=== PATIENT | female | born 1940 | race Caucasian/White ===

== ENCOUNTER 2018-03-25 14:18 | Inpatient (IN) ==
[2018-03-25] MEDS ORDERED: ONDANSETRON 4 MG/2 ML VIAL IV PRN (16:42)
[2018-03-25] MEDS ORDERED: SODIUM CHLORIDE 0.9% 1,000 ML IV PRN (16:51)
[2018-03-25 17:34] LABS: Basophils % 0.3 % (0.0-0.8); Eosinophils # 0.2 10*3/uL (0.0-0.87); Eosinophils % 2.6 % (0.00-10.9); Hematocrit 21.7 VOL% (35.7-47.0); Immature Granulocytes % 0.4 %; Immature Granulocytes Absolute 0.03 #; Lymphocytes # 2.6 10*3/uL (1.4-4.0); Mean Corpuscular HGB Conc 27.6 GM/DL (32-36); Mean Corpuscular Hemoglobin 19 PG (27-34); Mean Corpuscular Volume 69.6 FL (87-102); Mean Platelet Volume 9.4 FL (9.6-12.0); Monocytes # 0.7 10*3/uL (0.11-0.8); Monocytes % 10.4 % (1.7-12.7); Neutrophils # 3.4 10*3/uL (1.4-7.4); Neutrophils % 49.3 % (38.7-73.9); Platelet Count 273 T/CUMM (130-400); Red Blood Count 3.12 MC/CUMM (3.8-5.5); Red Cell Distribution Width 19.6 % (9.3-17.3); White Blood Count 6.9 T/CUMM (4-12)
[2018-03-25 17:58] LABS: Alanine Aminotransferase 14 U/L (13-56); Albumin 3.1 G/DL (3.4-5.0); Alkaline Phosphatase 50 U/L (45-117); Aspartate Amino Transferase 13 U/L (0-37); Bilirubin,Direct < 0.100 MG/DL (0.0-0.20); Bilirubin,Indirect 0.3 MG/DL (0.0-1.0); Bilirubin,Total < 0.39 MG/DL (0.2-1.0); Blood Urea Nitrogen 18 MG/DL (7-18); Glucose 78 MG/DL (74-106); Osmolality,Calculated 279.4 MOS/KG (273-304); Potassium 3.9 MMOL/L (3.5-5.1); Sodium 140 MMOL/L (136-145); Total Protein 6.7 G/DL (6.4-8.3)
[2018-03-25 19:38] LABS: Basophils % 0.3 % (0.0-0.8); Eosinophils # 0.2 10*3/uL (0.0-0.87); Eosinophils % 2.8 % (0.00-10.9); Immature Granulocytes % 0.3 %; Immature Granulocytes Absolute 0.02 #; Lymphocytes # 2.6 10*3/uL (1.4-4.0); Lymphocytes % 38.6 % (21.3-54.2); Mean Corpuscular HGB Conc 27.1 GM/DL (32-36); Mean Corpuscular Hemoglobin 19 PG (27-34); Mean Corpuscular Volume 71.4 FL (87-102); Mean Platelet Volume 9.6 FL (9.6-12.0); Monocytes # 0.6 10*3/uL (0.11-0.8); Monocytes % 9.3 % (1.7-12.7); Neutrophils # 3.3 10*3/uL (1.4-7.4); Neutrophils % 48.7 % (38.7-73.9); Platelet Count 271 T/CUMM (130-400); Red Blood Count 2.94 MC/CUMM (3.8-5.5); Red Cell Distribution Width 19.6 % (9.3-17.3); White Blood Count 6.8 T/CUMM (4-12)
[2018-03-25 19:41] LABS: Hemoglobin 5.7 GM/DL (12.0-16.0)
[2018-03-25 19:44] LABS: Apearance,Urine CLEAR (Clear); Bacteria,Urine Occasional /HPF (Few); Bilirubin,Urine Negative (Negative); Blood, Urine Negative (Negative); Glucose,Urine (UA) Negative (Negative); Ketones,Urine Negative (Negative); Mucus,Urine Occasional /LPF (Occasional); Nitrite,Urine Negative (Negative); Protein,Urine Negative; Squamous Epithelial Cell,Urine Occasional /HPF (0-10); Urine Color Yellow (Yellow); Urine Specific Gravity 1.008 (1.001-1.035); Urine Urobilinogen < 2.0 EU/DL (0.2-1.0); WBC,Urine 2 /HPF (0-6)
[2018-03-25 20:05] LABS: Folate 16.5 NG/ML (5.4-24.0); Vitamin B12 229 PG/ML (211-911)
[2018-03-25 21:11] LABS: Sedimentation Rate-Westergren 52 MM/HR (0-30)
[2018-03-25] MEDS: CITALOPRAM 20 MG TABLET PO SCH (21:18)
[2018-03-25] MEDS: amLODIPine 5 MG TABLET PO SCH (21:18)
[2018-03-25] MEDS: PANTOPRAZOLE 40 MG VIAL IV SCH (21:19)
[2018-03-26 08:12] LABS: Basophils % 0.7 % (0.0-0.8); Eosinophils # 0.2 10*3/uL (0.0-0.87); Eosinophils % 3.6 % (0.00-10.9); Hematocrit 29.2 VOL% (35.7-47.0); Immature Granulocytes % 0.5 %; Immature Granulocytes Absolute 0.03 #; Lymphocytes # 1.5 10*3/uL (1.4-4.0); Mean Corpuscular HGB Conc 29.1 GM/DL (32-36); Mean Corpuscular Hemoglobin 21 PG (27-34); Mean Corpuscular Volume 72.6 FL (87-102); Mean Platelet Volume 9.2 FL (9.6-12.0); Monocytes # 0.7 10*3/uL (0.11-0.8); Neutrophils # 3.4 10*3/uL (1.4-7.4); Neutrophils % 58.2 % (38.7-73.9); Platelet Count 250 T/CUMM (130-400); Red Cell Distribution Width 20.1 % (9.3-17.3); White Blood Count 5.9 T/CUMM (4-12)
[2018-03-26 08:18] LABS: Red Blood Count 4.02 MC/CUMM (3.8-5.5)
[2018-03-26 08:19] LABS: Hemoglobin 8.5 GM/DL (12.0-16.0)
[2018-03-26 08:53] LABS: Albumin 3.2 G/DL (3.4-5.0); Bilirubin,Direct 0.11 MG/DL (0.0-0.20); Bilirubin,Indirect 0.5 MG/DL (0.0-1.0); Bilirubin,Total 0.6 MG/DL (0.2-1.0)
[2018-03-26 09:08] LABS: Hemoglobin A1 (Alkaline) 97.9 % (96.5-98.5); Hemoglobin A2 (Alkaline) 2.1 % (1.5-3.5)
[2018-03-26 09:41] LABS: Calcium 8.1 MG/DL (8.5-10.1); Osmolality,Calculated 275.5 MOS/KG (273-304); Potassium 3.8 MMOL/L (3.5-5.1)
[2018-03-26 09:42] LABS: Risk Ratio 1.8; VLDL CHOLESTEROL 27.2 MG/DL
[2018-03-26] MEDS: PANTOPRAZOLE 40 MG VIAL IV SCH ×2 (10:00→21:06)
[2018-03-26] MEDS: CALCIUM (CARBONATE) 500 MG TABLET PO SCH (10:00)
[2018-03-26] MEDS: SODIUM CHLORIDE 0.9% 1,000 ML IV SCH (13:02)
[2018-03-26 15:05] LABS: Hematocrit 28.8 VOL% (35.7-47.0); Hemoglobin 8.1 GM/DL (12.0-16.0)
[2018-03-26] MEDS: CITALOPRAM 20 MG TABLET PO SCH (21:05)
[2018-03-26] MEDS: amLODIPine 5 MG TABLET PO SCH (21:06)
[2018-03-27 07:12] LABS: Basophils % 0.5 % (0.0-0.8); Eosinophils # 0.3 10*3/uL (0.0-0.87); Eosinophils % 3.4 % (0.00-10.9); Hematocrit 28.6 VOL% (35.7-47.0); Hemoglobin 8.1 GM/DL (12.0-16.0); Immature Granulocytes % 0.8 %; Immature Granulocytes Absolute 0.06 #; Lymphocytes # 2.2 10*3/uL (1.4-4.0); Lymphocytes % 29.7 % (21.3-54.2); Mean Corpuscular HGB Conc 28.3 GM/DL (32-36); Mean Corpuscular Hemoglobin 21 PG (27-34); Mean Corpuscular Volume 74.3 FL (87-102); Mean Platelet Volume 9.6 FL (9.6-12.0); Monocytes % 13.8 % (1.7-12.7); Neutrophils # 3.8 10*3/uL (1.4-7.4); Neutrophils % 51.8 % (38.7-73.9); Platelet Count 246 T/CUMM (130-400); Red Blood Count 3.85 MC/CUMM (3.8-5.5); White Blood Count 7.4 T/CUMM (4-12)
[2018-03-27 07:35] LABS: Hypochromasia 1+; Macrocytosis 1+; Target Cells Slight
[2018-03-27 07:36] LABS: Polychromasia Slight
[2018-03-27 07:39] LABS: Calcium 8.5 MG/DL (8.5-10.1); Osmolality,Calculated 278.3 MOS/KG (273-304); Potassium 4.4 MMOL/L (3.5-5.1)
[2018-03-27] MEDS: CALCIUM (CARBONATE) 500 MG TABLET PO SCH (09:39)
[2018-03-27] MEDS: PANTOPRAZOLE 40 MG VIAL IV SCH (09:39)
[2018-03-27 10:06] VITALS: BP 144/75
== END 2018-03-27 12:05 | disposition home or self-care (01) | DRG 378 ==
LOC: SUATTDRO 15:08 → N.5E 15:08
PROVIDERS: ADMIT Internal Medicine; ATTEND Internal Medicine